=== PATIENT | male | born 1965 | race Caucasian/White ===

== ENCOUNTER 2017-10-11 12:20 | Emergency (ER) | payer OTHER ==
[2017-10-11 13:38] VITALS: BP 124/87
--- NOTE | 2017-10-11 13:40 | UC ---
Lower Extremity/Ankle HPI - HPI Summary HPI Summary: 52 yo male presents requesting a referral to physical therapy. He tells me that he had b/l hip replacements toward the end of 2017 and was in PT for strength and mobility mandaen. He moved to [place] and underwent physical therapy there for a few months. He has now returned to [place] and would like to resume PT here. His PCP recently retired, thus prompting his visit to . Currently has some weakness in his LEFT LE. Denies numbness or tingling. - History of Current Complaint Chief Complaint: UCLowerExtremity Stated Complaint: SCRIPT REFILL Hx Obtained From: Patient Severity Currently: None Pain Intensity: 0 Able to Bear Weight: Yes - Allergies/Home Medications Allergies/Adverse Reactions: Allergies Allergy/AdvReac Type Severity Reaction Status Date / Time hydromorphone [From Dilaudid] Allergy See Comment Verified 10/11/17 13:39 Home Medications: Home Medications NK [No Home Medications Reported] 10/11/17 [History Confirmed 10/11/17] PMH/Surg Hx/FS Hx/Imm Hx - Additional Past Medical History Additional PMH: None Previously Healthy: Yes - Surgical History Surgical History: Yes Surgery Procedure, Year, and Place: tonsilectomy. BILAT HIP SX X2 - Family History Known Family History: Positive: Hypertension - Social History Occupation: Employed Full-time Lives: With Family Alcohol Use: Rare Substance Use Type: None Smoking Status (MU): Never Smoked Tobacco - Immunization History Most Recent Tetanus Shot: UTD Review of Systems Constitutional: Negative Skin: Negative Respiratory: Negative Cardiovascular: Negative Neurovascular: Negative Musculoskeletal: Other: - Left leg weakness Neurological: Negative Psychological: Negative All Other Systems Reviewed And Are Negative: Yes Physical Exam - Summary Physical Exam Summary: GENERAL: NAD. WDWN. No pain distress. SKIN: No rashes, sores, lesions, or open wounds. NECK: Supple. FROM. Nontender. No lymphadenopathy. CHEST: CTAB. No r/r/w. No accessory muscle use. Breathing comfortably and in no distress. CV: RRR. Without m/r/g. Pulses intact. Brisk cap refill. MSK: NTTP b/l hips. FROM B/L LEs. Strength decreased on LEFT with flexion and extension. Strength decreased on LEFT with dorsiflexion. NEURO: Alert. CN II-XII grossly intact. Sensations intact B/L LEs L3-S1. PSYCH: Age appropriate behavior. Triage Information Reviewed: Yes Vital Signs: Initial Vital Signs Temp 98.2 F 10/11/17 13:22 Pulse 78 10/11/17 13:22 Resp 18 10/11/17 13:22 BP 124/87 10/11/17 13:22 Pulse Ox 98 10/11/17 13:22 Lower Extremity Course/Dx - Course Course Of Treatment: Referral to PT s/p b/l JOSEPH. - Differential Dx/Diagnosis Provider Diagnoses: Left leg weakness. s/p b/l total hip replacement Discharge - Sign-Out/Discharge Documenting (check all that apply): Discharge/Admit/Transfer - Discharge Plan Condition: Stable Disposition: HOME Patient Education Materials: Total Hip Replacement (DC) Referrals: Samuel Carney MD [Primary Care Provider] - Additional Instructions: If you develop a fever, shortness of breath, chest pain, new or worsening symptoms - please call your PCP or go to the ED. 1) Resume physical therapy and f/u with your new PCP when possible - Billing Disposition and Condition Condition: STABLE Disposition: HOME
== END 2017-10-11 13:50 | disposition home or self-care (01) ==
LOC: UCEAST 12:20
DX: M62.81 Muscle weakness (generalized) (principal); Z96.643 Presence of artificial hip joint, bilateral; Z82.49 Family history of ischemic heart disease and other diseases of the circulatory system; Z88.5 Allergy status to narcotic agent
CPT/HCPCS: 99212; G0463

== ENCOUNTER 2018-11-11 15:07 | Emergency (ER) | payer MEDICARE, BC ==
[2018-11-11 15:23] VITALS: BP 129/92
[2018-11-11] MEDS ORDERED: Fluorescein Sodium TOPICAL* 1 MG TEST STRIP OPHTHALMIC ONE (15:41)
[2018-11-11] MEDS ORDERED: Tetracaine 0.5% OPTH.SOL 4 ML* 1 DROP BTL LEFT EYE ONE (15:41)
--- NOTE | 2018-11-11 15:46 | UC ---
Eye Complaint HPI - HPI Summary HPI Summary: 53-year-old male comes in with a chief complaint of left eye irritation and drainage for 3 days. Patient woke up with the symptoms 3 days ago. He has had some crusting in the morning. He has been having some headache with it. Headache pain is about a 2 out of 10. He does wear contacts but not on a regular basis and he has not been wearing them the last 3 days. No known trauma. No change in vision. - History of Current Complaint Chief Complaint: UCEye Stated Complaint: EYE COMPLAINT Time Seen by Provider: 11/11/18 15:34 Pain Intensity: 7 - Allergies/Home Medications Allergies/Adverse Reactions: Allergies Allergy/AdvReac Type Severity Reaction Status Date / Time hydromorphone [From Dilaudid] Allergy See Comment Verified 11/11/18 15:15 Home Medications: Home Medications Cysteine HCL* [l-Cysteine HCl*] 1 drop LEFT EYE ONCE PRN 11/11/18 [History Confirmed 11/11/18] PMH/Surg Hx/FS Hx/Imm Hx Previously Healthy: Yes - Surgical History Surgical History: Yes Surgery Procedure, Year, and Place: tonsilectomy. BILAT HIP SX X2 2017 - Family History Known Family History: Positive: Hypertension - Social History Alcohol Use: Rare Substance Use Type: None Smoking Status (MU): Never Smoked Tobacco - Immunization History Most Recent Tetanus Shot: UTD Review of Systems All Other Systems Reviewed And Are Negative: Yes Constitutional: Positive: Negative Skin: Positive: Negative Eyes: Positive: Drainage, Eye Redness, Other - SEE HPI ENT: Positive: Nasal Discharge Respiratory: Positive: Negative Cardiovascular: Positive: Negative Gastrointestinal: Positive: Negative Motor: Positive: Negative Neurovascular: Positive: Negative Musculoskeletal: Positive: Negative Neurological: Positive: Negative Psychological: Positive: Negative Is Patient Immunocompromised?: No Physical Exam Triage Information Reviewed: Yes Appearance: Well-Appearing, No Pain Distress, Well-Nourished Vital Signs: Initial Vital Signs Temp 95.7 F 11/11/18 15:11 Pulse 99 11/11/18 15:11 Resp 18 11/11/18 15:11 BP 129/92 11/11/18 15:11 Pulse Ox 96 11/11/18 15:11 Vital Signs Reviewed: Yes Eyes: Positive: Conjunctiva Inflamed - LT, Discharge - LT, Other: - Fluorescein stain examination of the left eye did not show any uptake. No foreign body was seen. No obvious STYE on examination. ENT: Positive: Pharynx normal, TMs normal Neck: Positive: Supple Respiratory: Positive: Lungs clear, Normal breath sounds, No respiratory distress Cardiovascular: Positive: RRR Musculoskeletal Exam: Normal Musculoskeletal: Positive: Strength Intact, ROM Intact Neurological Exam: Normal Neurological: Positive: Alert, Muscle Tone Normal Psychological Exam: Normal Psychological: Positive: Normal Response To Family, Age Appropriate Behavior Skin Exam: Normal Eye Complaint Course/Dx - Differential Dx/Diagnosis Provider Diagnosis: Conjunctivitis, left eye Discharge - Sign-Out/Discharge Documenting (check all that apply): Patient Departure All imaging exams completed and their final reports reviewed: No Studies - Discharge Plan Condition: Stable Disposition: HOME Prescriptions: Tobramycin 0.3% OPHTH.RAÚL* 1 drop LEFT EYE Q4H #1 btl Patient Education Materials: Conjunctivitis (ED) Referrals: Samuel Carney MD [Primary Care Provider] - [facility] [Provider Group] Additional Instructions: FOLLOW UP WITH OPHTHALMOLOGY IF NOT COMPLETELY IMPROVED. GET RECHECKED SOONER IF YOUR CONDITION WORSENS OR ANY QUESTIONS OR CONCERNS. - Billing Disposition and Condition Condition: STABLE Disposition: Home
== END 2018-11-11 16:05 | disposition home or self-care (01) ==
LOC: UCEAST 15:07
DX: H10.9 Unspecified conjunctivitis (principal); R51 Headache; J34.89 Other specified disorders of nose and nasal sinuses; Z88.5 Allergy status to narcotic agent
CPT/HCPCS: 99212; A9270-GY; G0463

== ENCOUNTER 2022-01-31 03:02 | Observation (INO) ==
[2022-01-31 03:26] LABS: ABS Basophils 0.1 10^3/ul (0-0.2); ABS Eosinophils 0.2 10^3/ul (0-0.6); ABS Lymphocytes 1.8 10^3/ul (1.0-4.8); ABS Monocytes 0.6 10^3/ul (0-0.8); ABS Neutrophils 4.6 10^3/ul (1.5-7.7); Eosinophil % 2.9 %; Hematocrit 40 % (42-52); Lymphocyte % 24.1 %; Mean Corpuscular HGB Conc 31 g/dL (31-36); Mean Corpuscular Hemoglobin 17 pg (27-31); Mean Corpuscular Volume 56 fL (80-94); Mean Platelet Volume 8.5 fL (7.4-10.4); Nucleated Red Blood Cells % 0.2; Platelet Count 183 10^3/uL (150-450); Red Blood Count 7.03 10^6 /uL (4.18-5.48); Red Cell Distribution Width 17 % (10-15); White Blood Count 7.3 10^3/uL (3.5-10.8)
[2022-01-31 03:29] LABS: INR 0.99 (0.89-1.11)
[2022-01-31 04:08] LABS: Albumin 4.1 g/dL (3.2-5.2); Calcium 9.2 mg/dL (8.6-10.3); Globulin 2.1 g/dL (2-4); Potassium 4.3 mmol/L (3.5-5.0); Total Bilirubin 0.4 mg/dL (0.2-1.0); Total Protein 6.2 g/dL (6.4-8.9); eGFR CKD-EPI 107.7 (>60)
[2022-01-31 04:59] LABS: High Sensitivity Troponin 1 Hr 88 pg/mL (<20)
[2022-01-31] MEDS ORDERED: Nitro 2% OINT (Nitroglycerin) 1 INCH/PAK TOPICAL ONE (05:17)
[2022-01-31 05:30] LABS: Activated Partial Thrombo Time 34.1 seconds (26.0-38.0)
[2022-01-31] MEDS ORDERED: Heparin DRIP 25,000 UNITS BAG 25,000 UNITS/500 ML BAG IV SCH (05:30)
[2022-01-31] MEDS ORDERED: Heparin 5000 UNITS/ML 1 mL VIAL IV SCH (06:00)
[2022-01-31] MEDS ORDERED: Ondansetron 4 mg VIAL 2 MG/ML 2 ml VIAL IV PRN (06:17)
[2022-01-31] MEDS ORDERED: Albuterol HFA INHALER 8 gm MDI INH PRN (06:45)
[2022-01-31] MEDS ORDERED: Perflutren Lipid Microsphere 3 ML VIAL ONE (08:11)
[2022-01-31] MEDS ORDERED: NS 0.9% 1000 ml BAG 1,000 ML IV SCH (08:15)
[2022-01-31] MEDS ORDERED: Lidocaine 1% MPF 5 ML VIAL ONE (08:47)
[2022-01-31] MEDS ORDERED: Heparin 1,000 UNIT/ML 10 ml (10,000 UNITS) CATHLAB/DIALYSIS ONE (08:47)
[2022-01-31] MEDS ORDERED: Iohexol 350 (CONTRAST) 100 ML PAK IV ONE ×2 (08:47→09:53)
[2022-01-31] MEDS ORDERED: Heparin 2 UNITS/ML 1000 mls 2,000 ML IV ONE (08:47)
[2022-01-31] MEDS ORDERED: nitroGLYCERIN DRIP 25,000 MCG/250 ML BTL ONE (08:47)
[2022-01-31] MEDS ORDERED: VERAPAMIL 2.5 MG/ML 2 ML VIAL ** 5 mg/2 ml ONE (08:47)
[2022-01-31] MEDS ORDERED: fentaNYL 100 mcg/2 ml 50 MCG/ML VIAL ONE (08:47)
[2022-01-31] MEDS ORDERED: Midazolam 5 mg/5 ml VIAL 1 mg/ml 5 ml VIAL (5 mg) ONE (08:47)
[2022-02-01 06:10] LABS: ABS Basophils 0.1 10^3/ul (0-0.2); ABS Eosinophils 0.3 10^3/ul (0-0.6); ABS Lymphocytes 1.8 10^3/ul (1.0-4.8); ABS Monocytes 0.7 10^3/ul (0-0.8); ABS Neutrophils 6.1 10^3/ul (1.5-7.7); Eosinophil % 3.2 %; Hematocrit 43 % (42-52); Hemoglobin 13.3 g/dL (14.0-18.0); Lymphocyte % 19.8 %; Mean Corpuscular HGB Conc 31 g/dL (31-36); Mean Corpuscular Hemoglobin 17 pg (27-31); Mean Corpuscular Volume 56 fL (80-94); Mean Platelet Volume 8.3 fL (7.4-10.4); Platelet Count 194 10^3/uL (150-450); Red Blood Count 7.64 10^6 /uL (4.18-5.48); Red Cell Distribution Width 17 % (10-15); White Blood Count 8.9 10^3/uL (3.5-10.8)
[2022-02-01 06:54] LABS: HDL Cholesterol 60.6 mg/dL
[2022-02-01 11:31] VITALS: BP 137/81
[2022-02-01 11:46] LABS: Erythrocyte Sed Rate 5 mm/Hr (0-19)
== END 2022-02-01 14:13 | disposition home or self-care (01) ==
LOC: ED 03:02 → EDHOLD 03:02 → SUATTDRO 05:41 → EDHOLD 09:14 → MEDTELE 12:10
PROVIDERS: ADMIT Internal Medicine; ATTEND Internal Medicine